=== PATIENT | female | born 1980 | race Caucasian/White ===

== ENCOUNTER 2024-08-21 14:47 | Outpatient (RCR) | payer BC, SELFPAY | END 2024-08-21 23:59 | disposition home or self-care (01) | LOC: PT 14:47 | PROVIDERS: Visit Provider Physical Medicine & Rehabilitation Spinal Cord Injury Medicine | DX: M95.5 Acquired deformity of pelvis (principal) | CPT/HCPCS: 97163 ==

== ENCOUNTER 2024-09-25 17:00 | Outpatient (RCR) | payer BC, SELFPAY | END 2024-09-25 23:59 | disposition home or self-care (01) | LOC: PT 17:00 | PROVIDERS: Visit Provider Physical Medicine & Rehabilitation Spinal Cord Injury Medicine | DX: M95.5 Acquired deformity of pelvis (principal); M54.50 Low back pain, unspecified | CPT/HCPCS: 97014; 97110; 97140; 97530; G0283 ==